=== PATIENT | male | born 2000 | race Two or more races ===

== ENCOUNTER 2024-11-18 05:18 | Emergency (ER) | payer MEDICAID ==
[~2024-11-18] VITALS: Ht 190.5 cm; Wt 95.3 kg
[2024-11-18 05:24] VITALS: BP 137/82
[2024-11-18] MEDS ORDERED: NEOMY/BACITRA/POLYMYXIN B OINT UD PACKET TP ONE (05:42)
[2024-11-18] MEDS ORDERED: TDAP DIPH,PERTUSS,TET VAC/PF 0.5 ML DISP.SYRIN IM ONE (05:42)
[2024-11-18] MEDS ORDERED: NEOM28.37 TP (05:43)
[2024-11-18] MEDS: TDAP DIPH,PERTUSS,TET VAC/PF 0.5 ML DISP.SYRIN IM ONE (05:57)
[2024-11-18] MEDS: NEOMY/BACITRA/POLYMYXIN B OINT UD PACKET TP ONE (05:57)
[2024-11-18 06:15] VITALS: BP 129/78; O2SAT 98
== END 2024-11-18 06:06 | disposition home or self-care (01) ==
LOC: ER 05:33
DX: S00.412A Abrasion of left ear, initial encounter (principal); M25.512 Pain in left shoulder; X58.XXXA Exposure to other specified factors, initial encounter; Y93.89 Activity, other specified; Y92.89 Other specified places as the place of occurrence of the external cause; Y99.8 Other external cause status
CPT/HCPCS: 73000; 73030; 90715; A4606; A4663